=== PATIENT | male | born 1945 | race Caucasian/White ===

== ENCOUNTER 2024-12-13 10:00 | Outpatient (OUT) | payer MEDICARE, OTHER, SELFPAY ==
--- OUTSIDE RECORDS SUMMARY | 2024-12-14 09:55 | XMS_ITS | Clinical Summary ---
Author Organization [facility] 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 Cellulitis 06/23/2009 Resolved Problems Problem Noted Date Diagnosed Date Resolved Date Edema 06/23/2009 05/08/2010 Immunizations Immunization Administration Dates Next Due TDaP, ADACEL (age 10y-64y), BOOSTRIX (age 10y+), IM, 0.5mL 05/08/2010 Social History Tobacco Use Types Packs/Day Years Used Date Smoking Tobacco: Never Sex and Gender Information Value Date Recorded Sex Assigned at Not on file Legal Sex Male 8:12 PM EDT Gender Identity Not on file Sexual Orientation Not on file Last Filed Vital Signs Vital Sign Reading Time Taken Comments Blood Pressure 193/104 08/27/2022 10:15 AM EDT Pulse 74 08/27/2022 10:15 AM EDT Temperature 36.6 C (97.8 F) 08/27/2022 9:45 AM EDT Respiratory Rate 0 08/27/2022 10:15 AM EDT Oxygen Saturation 100% 08/27/2022 10:15 AM EDT Inhaled Oxygen Concentration - - Weight 86.2 kg (190 lb) 08/27/2022 9:45 AM EDT Height 177.8 cm (5' 10 ) 08/27/2022 9:45 AM EDT Body Mass Index 27.26 08/27/2022 9:45 AM EDT Plan of Treatment Health Maintenance Due Date Last Done Comments Depression Screen 1958 Hepatitis C screen 1964 Pneumococcal 50+ years Vacci ne (1 of 1 - PCV) 1996 Shingles vaccine (1 of 2) 1996 Respiratory Syncytial Virus (RSV) or age 60 yrs+ (1 - 1-dose 75+ series) 2021 Annual Wellness Visit (Medicare) 03/16/2023 COVID-19 Vaccine (2 - 2023-2 5 season) 2023 09/05/2020 Flu vaccine (#1) 11/18/2024 DTaP/Tdap/Td vaccine (3 - Td or Tdap) 06/04/2027 06/04/2017, 05/08/2010 Hepatitis A vaccine Aged Out 11/04/2011 No longe r eligible based on patient's age to complete this topic Hepatitis B vaccine Aged Out No longe r eligible based on patient's age to complete this topic Hib vaccine Aged Out No longer eligi ble based on patient's age to complete this topic Meningococcal (ACWY) vaccine Aged Out No longer eligible based on patient's age to complete this topic Meningococcal B vaccine Aged Out No l onger eligible based on patient's age to complete this topic Polio vaccine Aged Out No longer elig ible based on patient's age to complete this topic [place] [address] [place] [address] Care Teams Feed Weigher Relationship Specialty Start Date End Date Iris Pickering MD [address] [place] [address] [place] [id number] PCP - General Internal Medicine 08/20/22
--- OUTSIDE RECORDS SUMMARY | 2024-12-14 09:55 | XMS_ITS | Clinical Summary ---
Author Organization [facility] Healthcare Address [address] [place] [address] Care Team Providers Care Winery Worker Name Role Phone Joss Banuelos MD Primary Care Provider [phone] Medications amLODIPine (Norvasc) 5 MG tablet Take 5 mg by mouth in the morning. 08/10/2024 Active aspirin 81 MG chewable tablet Chew 81 mg in the morning. 06/15/2024 Active atorvastatin (Lipitor) 40 MG tablet Take 40 mg by mouth in the morning. 06/22/2024 Active cyanocobalamin (Vitamin B-12) 1000 MCG tablet Take 1,000 mcg by mouth Daily Active donepezil (Aricept) 5 MG tablet Take 5 mg by mouth at bedtime 08/10/2024 Active omeprazole (PriLOSEC) [address] capsule Take 40 mg by mouth Daily 07/22/2024 Active multivitamin (Theragran) tablet Take 1 tablet by mouth in the morning. 06/14/2024 Active lisinopril 30 MG tablet Take 30 mg by mouth Daily 06/15/2024 Active Family History Medical History Relation Name Comments Alzheimer's disease Mother Relation Name Status Comments Father Mother Social History Tobacco Use Types Packs/Day Years Used Date Smoking Tobacco: Former Cigarettes Smokeless Tobacco: Never Tobacco Cessation:Counseling Given: Not Answered Sex and Gender Information Value Date Recorded Sex Assigned at Not on file Legal Sex Male 11:25 AM EDT Gender Identity Not on file Sexual Orientation Not on file Last Filed Vital Signs Vital Sign Reading Time Taken Comments Blood Pressure 126/78 08/16/2024 11:07 AM EDT Pulse 78 08/16/2024 11:07 AM EDT Temperature - - Respiratory Rate - - Oxygen Saturation 99% 08/16/2024 11:07 AM EDT Inhaled Oxygen Concentration - - Weight 89.8 kg (198 lb) 08/16/2024 11:07 AM EDT Height 175.3 cm (5' 9 ) 08/16/2024 11:07 AM EDT Body Mass Index 29.24 08/16/2024 11:07 AM EDT Plan of Treatment Not on file Insurance MEDICARE [place] [id number] Care Teams Winery Worker Relationship Specialty Start Date End Date Joss Banuelos MD PCP - General Family Medicine 06/20/24
== END 2024-12-13 10:01 | disposition home or self-care (01) ==
LOC: SLEEP 12-14 09:53
PROVIDERS: PCP Psychiatry & Neurology Neurology; Visit Provider Psychiatry & Neurology Neurology
DX: G47.33 Obstructive sleep apnea (adult) (pediatric) (principal); G47.11 Idiopathic hypersomnia with long sleep time
CPT/HCPCS: 95806